=== PATIENT | female | born 1990 | race Caucasian/White ===

== ENCOUNTER 2022-01-04 20:21 | Emergency (ER) | payer BC ==
[2022-01-04] MEDS ORDERED: HYDROcodone/Acetaminophen 5/325 mg Tablet ONE (20:46)
== END 2022-01-04 21:41 | disposition home or self-care (01) ==
LOC: ERS 20:21
DX: S93.402A Sprain of unspecified ligament of left ankle, initial encounter (principal); X50.1XXA Overexertion from prolonged static or awkward postures, initial encounter; Y93.66 Activity, soccer